=== PATIENT | female | born 1960 | race Caucasian/White ===

== ENCOUNTER 2021-07-13 18:19 | Emergency (ER) | payer MEDICARE, OTHER ==
[2021-07-13] MEDS ORDERED: DIFLUCAN150 MG PO (19:24)
[2021-07-13] MEDS ORDERED: BACTRIM DS TAB1 EACH PO (19:24)
== END 2021-07-13 19:38 | disposition home or self-care (01) ==
LOC: FER 18:19
DX: L03.115 Cellulitis of right lower limb (principal); I10 Essential (primary) hypertension; F17.200 Nicotine dependence, unspecified, uncomplicated; Z28.310 Unvaccinated for COVID-19
CPT/HCPCS: 99282